=== PATIENT | female | born 1935 | race Hispanic/Latino ===

== ENCOUNTER 2018-12-24 13:59 | Outpatient (CLI) | payer MEDICARE, BC | END 2018-12-24 14:00 | disposition home or self-care (01) | LOC: RAD 13:59 ==

== ENCOUNTER 2018-12-30 12:39 | Outpatient (CLI) | payer MEDICARE, BC | END 2018-12-30 12:40 | disposition home or self-care (01) | LOC: CARDIO 12:39 | DX: I48.91 Unspecified atrial fibrillation (principal); I62.9 Nontraumatic intracranial hemorrhage, unspecified ==